=== PATIENT | female | born 1935 | race Caucasian/White ===

== ENCOUNTER → 2019-09-08 | Outpatient (CLI) | payer OTHER ==
[~2019-09-08] VITALS: Ht 154.9 cm; Wt 77.3 kg
[~2019-09-08] MED LIST: ALEVE220 M1 PO; ASPIRIN EC325 M1 PO; CARVEDILOL12.5 MG PO; COZAAR 50 MG TA50 MG PO; HYDROXYZINE HCL10 M2 PO; PLAVIX 75 MG TA75 MG PO; PRILOSEC OTC20 MG PO; TRAMADOL 50 MG50 MG PO
--- NOTE | ~2019-09-08 | HPC ---
[facility] [address] [address] PAIN MANAGEMENT CONSULTATION Name: VIRGILIO MORTON [facility] [id number] Admission: 09/08/19 Attend Phys: Stan Harrison DO Discharge: Date of : 35 Report #: [id number] THIS REPORT FOR: cc: ADAIR - Samantha family physician/PCP ADAIR - Samantha family physician/PCP Stan Harrison DO ~ THIS REPORT FOR: //name// CC: Dr. Mason BORRERO physician/PCP Stan Harrison DATE OF SERVICE: 09/08/2019 REFERRING PHYSICIAN: Dr. Cuevas. CHIEF COMPLAINT: Low back pain, bilateral lower extremity pain with paresthesias. HISTORY OF PRESENT ILLNESS: As you know, the patient is an 83-year-old female who has also had a longstanding history of low back pain, bilateral lower extremity pain that presented in 1995. She has been "just dealing with it" since that time, but over the past couple of years, her pain has begun to intensify to a level of up to 7/10. Due to lack of improvement with conservative treatment options including [id number] medications, rest, relaxation and even some prescription medications, she was referred to our clinic to discuss options for treatment. The patient indicates there pain is typically at night. She describes the pain as aching, intermittent numbness and tingling, places current pain score 0/10, daily average up to 1/10, worst pain has been a 7-8/10. The patient states that lying down at night and certain positions exacerbate symptoms; tramadol, Aleve, ice, muscle relaxants and rest tend to improve pain. She has been referred to our service to discuss treatment options for suspected lumbar radiculopathy. PAST MEDICAL HISTORY: 1. Hypertension. 2. Coronary artery disease. 3. History of gallbladder disease, status post cholecystectomy. 4. Gastroesophageal reflux disease. 5. Chronic axial back pain. PAST SURGICAL HISTORY: 1. Cholecystectomy. 2. 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 [address] [address] PAIN MANAGEMENT CONSULTATION Name: VIRGILIO MORTON Room #: REG [facility].#: [id number] Admission: 09/08/19 Attend Phys: Stan Harrison DO Discharge: Date of : 35 Report #: [id number] SOCIAL HISTORY: The patient denies tobacco, alcohol, IV or illicit drug use. She is retired, retired 21 years ago, not receiving workmen's compensation nor is she trying to obtain disability benefits. She is unaccompanied today. IMAGING: MRI of the lumbar spine obtained 09/07/2019 shows degenerative changes throughout the lumbar spine without any high grade central canal stenosis. There are levels of lateral and foraminal stenosis, mainly noted at the L2-L3 and L3-L4 level. There is levoscoliosis centered at the L2-L3 level, stable findings from 2017. ALLERGIES: No known drug allergies. CURRENT MEDICATIONS: Carvedilol 12.5 mg twice a day, Plavix 75 mg once a day, omeprazole 20 mg once a day, aspirin 325 mg per day, losartan 50 mg per day, hydroxyzine 10 mg per day, tramadol 50 mg a day, naproxen sodium 220 mg every 8 hours p.r.n. pain. PQRS: The patient has known arthritic changes of the cervical and lumbar spine. No rheumatoid arthritis. She is placing current pain score 0/10. She is not a fall risk, has not had a fall in last 3 months. She is currently on blood thinners in the form of Plavix, which precludes us from providing any type of interventional treatment at this date. She is treated for hypertension. She is not on chronic opioids, has a low opioid addiction potential. Pain impact score 22/70, mild to moderate interference of daily activities secondary to pain. REVIEW OF SYSTEMS: Positive for fatigue and weakness, shortness of breath with walking or lying flat, heart trouble, frequent coughs, nocturia, insomnia, back pain exacerbated with lying down. All other review of systems negative per 12-point review of systems other than those listed in history of present illness. Pain impact score 22/70 indicating [id number] interference of daily activities secondary to pain. PHYSICAL EXAMINATION: VITAL SIGNS: Blood pressure 178/57, pulse 88, respiratory rate 20 and unlabored. The patient is 99% on room air. Height 5 feet 1 inch tall, weight 170 pounds, BMI calculated 32.2. GENERAL: Well-developed, well-nourished, well-hydrated 83-year-old female, appears stated age, placing current pain score 0/10 up to 8/10 depending on activity. HEENT: Normocephalic, atraumatic. Pupils equal, round, reactive to light. Extraocular muscles are intact. Sclerae nonicteric without injection. NEUROLOGIC: Cranial nerves 2-12 grossly intact. Speech fluent. The patient deemed a good historian. LUNGS: Clear. No wheeze, rhonchi or rales. CARDIOVASCULAR: Regular. No appreciable gallop, no rub. ABDOMEN: Soft, mildly obese, normoactive bowel sounds. [facility] [address] [place] [address] PAIN MANAGEMENT CONSULTATION Name: VIRGILIO MORTON Room #: REG [facility] Garcia#: [id number] Admission: 09/08/19 Attend Phys: Stan Harrison DO Discharge: Date of : 35 Report #: [id number] EXTREMITIES: Show no clubbing, no cyanosis, and no edema. MUSCULOSKELETAL: Lower extremity strength equal and symmetrical 5/5. There is noted deconditioning, but strength is equal and symmetrical. Deep tendon reflexes are symmetrical, but diminished 1+/4 at the Achilles and patellar reflexing. Muscle bulk and tone comparing left lower extremity to right is equal and symmetrical. Seated straight leg raising negative. Supine straight leg raising mildly positive, more on the right than left. Sonia's test negative. Modified Gaenslen's positive for axial low back pain. Ankle clonus negative. Babinski is negative. ASSESSMENT: 1. Chronic low back pain. 2. Possible lumbar radiculopathy. 3. Displacement of lumbar intervertebral disk with radiculopathy. 4. Neural foraminal stenosis of lumbar spine. 5. Facet arthropathy of the lumbar spine. 6. Chronic intractable pain. PLAN: 1. Based on today's physical exam and history the patient has provided, the description the patient uses in regards to pain, likely source of the patient's symptoms is both a combination of facet arthropathy and neural foraminal stenosis leading to bilateral nature of her symptoms. Confirmation with the MRI does show neural foraminal stenosis at the L2-L3 and L3-L4 level consistent with the patient's distribution of symptoms, but also shows facet arthropathy changes typical for an 83-year-old female. After we discussed the findings of the MRI and how they correlate to symptoms, we discussed the treatment options we have available. Following was discussed with the patient today. We discussed physical therapy, stretching exercises and core strengthening as a treatment option. This could help not only improve overall function, but improve overall pain. We discussed medication management utilizing neuropathic pain medications and a low dose opioid for pain control. Typically, we provide nonsteroidal anti-inflammatory treatment, but given her current use of Plavix, this has precluded due to the bleeding risk, which is compounded by these 2 medications in conjunction. We discussed interventional treatments including epidural injections to address any neural foraminal stenosis. We also discussed facet injections, medial branch nerve blocks and radiofrequency lesioning to address the axial back pain she is experiencing. We also discussed ultimately surgical decompression. After reviewing the risks and benefits of all proposed treatment options, the patient chose to remain conservative with treatment. She wishes to utilize home exercise program and dkey-zmz-palftip medications at present, but understands that she has these options available if she wishes to further be evaluated. 2. No medication changes made at today's visit. The patient will continue current medical therapy as prior prescribed. [address] [address] PAIN MANAGEMENT CONSULTATION Name: VIRGILIO MORTON Room #: REG [facility] Jose#: [id number] Admission: 09/08/19 Attend Phys: Stan Harrison DO Discharge: Date of : 35 Report #: [id number] 3. We will be available to see the patient back in followup visit to address any concerns she may have for axial back and bilateral lower extremity symptoms. Certainly any other treatment options provided could give benefit. We will see her back in followup visit on an as needed basis. 4. We wish to thank Dr. Cuevas for the referral of the patient to our clinic. We will keep you apprised of her response to treatment if she does return to undergo interventional treatments. Again, we wish to thank you for the opportunity to see this patient in consultation. By: [id number] Stan Harrison DO /nt
[2019-09-08 12:43] VITALS: BP 178/57
--- NOTE | 2019-09-08 12:59 | NUR ---
Pain Clinic Assessment: 1. History of Osteoarthritis: HANDS BACK History of Rheumatoid Arthritis: Not Applicable 2. Height: 5 ft. 1 in. 154.9 cm. Weight: 170.4 lb. oz. 77.293 kg. Patient's BMI: 32.2 3. Vital Signs: BP: 178/57 Pulse: 88 Resp: 20 Temp: 02 Sat: 99 ECG Mon: 4. Pain Intensity: 7-8 5. Fall Risk: Dizziness: N Needs help standing or walking: N Fallen in the last 3 months: N Fall risk comments: 6. Patient on Blood Thinner: PLAVIX 7. History of Hypertension: Y 8. Opioid Therapy greater than 6 weeks: N Opiate Contract Signed: 9. Risk Assessment Tool Provided: LOW RISK 0/3 10. Functional Assessment Tool: 11. Recreational Drug Use: Never Drug Type: Tobacco Use: Never Smoker Tobacco Type: Amount or Packs/day: How Many Years: Alcohol Use: No Frequency: Quant:
== END ==
LOC: PAIN 06:49
DX: M51.16 Intervertebral disc disorders with radiculopathy, lumbar region (principal); M48.061 Spinal stenosis, lumbar region without neurogenic claudication; G89.29 Other chronic pain; I10 Essential (primary) hypertension; I25.10 Atherosclerotic heart disease of native coronary artery without angina pectoris; K21.9 Gastro-esophageal reflux disease without esophagitis; Z90.49 Acquired absence of other specified parts of digestive tract; Z98.61 Coronary angioplasty status; Z95.0 Presence of cardiac pacemaker; Z79.899 Other long term (current) drug therapy